=== PATIENT | female | born 1965 | race Caucasian/White ===

== ENCOUNTER → 2016-07-08 | Day surgery (SDC) | payer OTHER ==
[~2016-07-08] VITALS: Ht 170.2 cm; Wt 95.3 kg
[~2016-07-08] MED LIST: ALIGN4 M1 PO; BRISDELLE7.5 M1 PO; CATAPRES-TTS 11 EACH TOP; FETZIMA40 M1 PO; KCL 20 MEQ20 MEQ/101 IV; LASIX40 M1 PO; LASIX40 MG PO; LASIX80 M1 PO; LEVOTHYROXIN0.075 M1 PO; LEVSIN-SL0.125 MG SL; LORAZEPAM1 MG PO; LOSARTAN POTASS50 MG PO; LYRICA50 MG PO; LYRICA75 M1 PO; NORVASC10 M1 PO; PREVACID 30MG30 MG PO; PRISTIQ100 MG PO; PROTONIX 40MG T40 MG PO; RITE AID BIO2500 MCG PO; SYNTHROID100 MCG PO; TOPROL XL50 MG PO; VITAMIN D250000 UNIT PO; ZOFRAN ODT4 MG SL; [UNRECOGNIZED DRUG - OTHER] IV
--- NOTE | 2016-07-08 13:55 | Operative Report ---
Operative/Inv Procedure Report Surgery Date: 07/08/16 Name of Procedure: cystoscopy with cystogram-fluoroscopy: bilateral retrograde pyelogram. Pre-Operative Diagnosis: air in bladder Post-Operative Diagnosis: NO fistula. NO ureter extrav. NO TUMOR, NO STONE. Estimated Blood Loss: scant Surgeon/Interior Assemblies Installer: CECE MARIN MD Anesthesia: general endotracheal tube Drains: none Specimens: urine culuture Complications: none Operative/Procedure Note Note: The patient was taken to the operating room and placed on the OR table in supine position. Time out was performed, with the patient awake, to confirm correct identity, laterality, procedure, and other pertinent intra-operative information. After adequate anesthesia and antibiotics, the patient was then placed lithotomy stirrups draped and prepped in the usual surgical fashion. A 22 Turkish cystoscope sheath with a 30 angle lens was inserted without difficulty. Upon entering the bladder, the bladder was noted to be free of tumor free of stone, with both orifices in their orthotopic position. Bilateral clear efflux of urine was seen from both orifices. The left orifice was intubated with an open ended ureteral catheter and retrograde pyelogram was performed revealing no stone/tumor and brisk excretion of contrast material. After removing the catheter from the left side, the right orifice was intubated, and retrograde pyelogram was performed on the right side. There was no filling defect on the right side as well, with brisk efflux of contrast. Having found NO pathology on either side, the bladder was then hydrodistended 2 with the irrigation fluid at 40 cm above the symphysis pubis. No increased petechiae was noted. No Hunner's ulceration was noted. 300cc of cytoconray dye was instilled into the bladder with fluroscopy revealing NO leakage of contrast, and full drainage without extravasation/leak of contrast see. After completing the retrograde pyelograms bilaterally, and the hydrodistentionw with cystogram, the bladder was then drained and the cystoscope was removed. The pt. tolerated the procedure well was then taken to the recovery room in satisfactory condition. The patient is to be discharged home to follow up in few weeks time for re-evaluation and plans. Findings: normal bladder with clear efflux bilat. normal bilateral collecting system with brisk drainage and no extravasation. Discharge Disposition: PACU CC: CECE MARIN MD
--- NOTE | 2016-07-09 10:19 | RADIOLOGY REPORT ---
EXAMINATION: Cystoscopy. C-arm imaging CLINICAL INDICATION: Cystoscopy, bilateral retrograde ureterogram and cystogram. COMPARISON: CT abdomen pelvis 11/10/2015 TECHNIQUE: C-arm imaging. Dose: 0.276 mGym2 Images: 5 FINDINGS: Spot images obtained over the right kidney and left kidney show contrast in the collecting system of both kidneys and the ureters without dilatation or filling defect. 2. Spot images were then obtained over the bladder which show a filled bladder. The final image shows the bladder is completely emptied. IMPRESSION: Normal bilateral retrograde ureterogram and cystogram
== END ==
LOC: STS 01:27
DX: N32.9 Bladder disorder, unspecified (principal); I10 Essential (primary) hypertension; E11.43 Type 2 diabetes mellitus with diabetic autonomic (poly)neuropathy; K31.84 Gastroparesis; Z79.4 Long term (current) use of insulin; E03.9 Hypothyroidism, unspecified
CPT/HCPCS: 36415; 74000; 87086; 93005; 93010; J1580; J2250; Q9967